=== PATIENT | female | born 1985 | race African-American/Black ===

== ENCOUNTER 2017-09-12 05:25 | Day surgery (SDC) | payer OTHER ==
[2017-09-04 17:41] VITALS: BMI 35.6
[2017-09-12] MEDS ORDERED: oxyCODONE HCL 5 MG TABLET PO PRN ×2 (14:16)
[2017-09-12] MEDS ORDERED: ONDANSETRON 4 MG/2 ML VIAL IVPUSH PRN (14:16)
[2017-09-12] MEDS ORDERED: LACTATED RINGERS SOLUTION 1,000 ML IV SCH (14:30)
[2017-09-12] MEDS ORDERED: ceFAZolin SODIUM 1 GM VIAL IVPB ONE (14:40)
--- NOTE | 2017-09-12 14:41 | HP ---
Satellite [facility] - Chief Complaint Chief Complaint: left knee pain History of Present Illness: left knee OA and meniscus tear History Source: Patient Limitations to Obtaining History: No Limitations - Past Medical History Allergies/Adverse Reactions: Allergies Allergy/AdvReac Type Severity Reaction Status Date / Time No Known Drug Allergies Allergy Verified 09/12/17 13:19 ...LMP: 09/03/17 - Current Medications Current Medications: Home Medications Medication Instructions Recorded Acetaminophen [Tylenol -] 1,000 mg PO PRN PRN 09/04/17 Ascorbate Calcium [Vitamin C] 500 mg PO DAILY 09/04/17 Cholecalciferol (Vitamin D3) 2,000 unit PO DAILY 09/04/17 [Vitamin D3 -] Multivitamin [One Daily] 1 each PO DAILY 09/04/17 Satellite Physical Exam - Physical Examination Vital Signs: Vital Signs Period Temp Pulse Resp BP Sys/Medina Pulse Ox Last 24 Hr 98.0 F 77 20 115/83 98 General Appearance: Well Nourished ENT: Clear Lung: Clear to auscultation Heart: Regular rate & rhythm Breasts: Soft Abdomen: Soft Extremities: No edema Satellite Impression/Plan - Impression/Plan Impression: left knee mensicus tear, OA, loose body Operative Procedure: left knee arthroscopy, partial meniscectomy, debridement chondroplasty, removal loose body Date to be Performed: 09/12/17
[2017-09-12] MEDS ORDERED: BUPIVACAINE HCL/PF 0.5% (5MG/ML) 10 ML VIAL ONE (14:45)
[2017-09-12] MEDS ORDERED: BUPIVACAINE HCL/PF 0.5% (5MG/ML) 10 ML VIAL IJ ONE (15:25)
--- NOTE | 2017-09-12 15:34 | OP ---
Operative Note - Note: Operative Date: 09/12/17 Pre-Operative Diagnosis: left knee pain Operation: left knee arthroscopy, partial lateral meniscectomy Post-Operative Diagnosis: Same as Pre-op Surgeon: Casper Ware Anesthesia: General, Local Specimens Removed: shavings Estimated Blood Loss (mls): 0 Drains, Volume Out (mls): 0 Blood Volume Replaced (mls): 0 Fluid Volume Replaced (mls): 500 Operative Report Dictated: Yes
--- NOTE | 2017-09-12 17:31 | OP ---
DATE OF OPERATION: 09/12/2017 PREOPERATIVE DIAGNOSIS: Left knee pain. POSTOPERATIVE DIAGNOSIS: Left knee pain. Lateral meniscus tear. PROCEDURE: Left knee arthroscopy, partial lateral meniscectomy. SPECIMENS: Arthroscopic shavings. DRAINS: None. COMPLICATIONS: None. FLUID: 500 mL. BLOOD LOSS: None. BLOOD GIVEN: None. INDICATION: This patient is a 31-year-old female with preoperative diagnosis of left knee pain. After understanding the potential risks, complications, alternatives, benefits to surgery versus nonsurgical treatment, the patient elected to undergo this procedure. DESCRIPTION OF PROCEDURE: Patient brought to operating room, peripheral IV placed, IV sedation given, LMA anesthesia was induced. Ample Webril was placed around the left thigh. The was applied. She was placed in the C-clamp leg duran with ample padding throughout. The left lower extremity was prepped and draped in sterile fashion, elevated, exsanguinated with an Esmarch bandage and tourniquet inflated to 275 mmHg. Next, a superior medial portal was established. A lateral portal was established. An arthroscope was introduced into the joint using direct visualization. Using a spinal needle and needle portal was established. A probe was introduced into the joint and diagnostic arthroscopy was performed. The median compartment looked good. There was only grade 1 chondromalacia of the medial tibial plateau, but it was very mild. The medial femoral condyle looked good. The medial meniscus looked good. I probed it. I could not find any tear. Intracondylar notch looked good. The ACL looked good. There was abundant ligamentum mucosum; therefore, this was removed with a shaver. Next, the lateral compartment was directly visualized. The patient had a small radial tear at the junction of the posterior horn and body of the lateral meniscus; this was debrided with a curved shaver. There was no arthritis, the lateral compartment also looked quite good. Next, our attention turned to the patellofemoral joint which also looked quite good. There was no arthritis. There was no excessive synovitis. I did an extensive visual search of any loose bodies in the joint in the superior patellofemoral pouch lateral and medial gutters. I could not find any loose bodies. It is possible that I already was able to remove it when doing the ligamentum mucosum debridement. The area was copiously irrigated and washed out. All instrumentation was removed. Excess saline removed. The arthroscopy portals were closed with 3-0 nylon sutures. The areas were then washed and dried. 20 mL 0.5% Marcaine was introduced into the joint. I covered with Xeroform gauze, 4x4 gauze, Webril and a 6-inch Nazario bandage was applied. The tourniquet was taken down after a total tourniquet time of 15 minutes. There were no complications during the case and the patient tolerated the procedure quite well and was brought to the ambulatory recovery room in stable condition. BAILEY ISAAC M.D. [id number]
[2017-09-12 18:04] VITALS: BP 122/77; PULSE 77
[2017-09-12 18:58] VITALS: TEMP 98.3
--- NOTE | 2017-09-19 11:55 | PATH ---
Surgical Pathology Report Patient Name: JESSICA WILLAMS [facility]. Rec. #: [id number] /Age/Gender: 1985 (Age: 31) / F Account: [id number] Location: [facility] Taken: 09/12/2017 Received: 09/13/2017 Reported: 09/19/2017 Physicians: Casper Ware M.D. Specimen(s) Received LEFT KNEE SHAVINGS Clinical History Osteoarthritis left knee Final Diagnosis KNEE SHAVINGS, LEFT, ARTHROSCOPY AND PARTIAL MENISCECTOMY: BENIGN SCANT CARTILAGE, SYNOVIUM AND FIBROADIPOSE TISSUE. Electronically Signed Ivonne Nava M.D. Gross Description Received in formalin, labeled "left knee shavings," is a 4.2 x 4.0 x 0.3 cm. aggregate of rice-yellow soft tissue fragments. A screening representative portion is submitted in one cassette. /09/13/201709/13/2017
== END 2017-09-12 18:04 | disposition home or self-care (01) ==
LOC: JASU-SURG 05:25
PROVIDERS: ATTEND Orthopaedic Surgery
PROC: 0SBD4ZZ Excision of Left Knee Joint, Percutaneous Endoscopic Approach (ICD-10-PCS; principal; 2017-09-12 14:30)
DX: S83.282A Other tear of lateral meniscus, current injury, left knee, initial encounter (principal); X58.XXXA Exposure to other specified factors, initial encounter; Y93.9 Activity, unspecified; Y92.9 Unspecified place or not applicable; Y99.9 Unspecified external cause status
CPT/HCPCS: 84703; 94760

== ENCOUNTER 2021-09-02 08:09 | Day surgery (SDC) | payer BC ==
[2021-08-25 15:55] VITALS: BMI 37.0
[2021-09-02] MEDS ORDERED: ONDANSETRON 4 MG/2 ML VIAL ONE (09:00)
[2021-09-02 09:47] VITALS: BP 128/73; PULSE 90; TEMP 87.8
== END 2021-09-02 09:55 | disposition home or self-care (01) ==
LOC: FASU-ENDO 08:09
PROVIDERS: ATTEND Internal Medicine Gastroenterology
PROC: 0DB68ZX Excision of Stomach, Via Natural or Artificial Opening Endoscopic, Diagnostic (ICD-10-PCS; 2021-09-02)
PROC: 0DB98ZX Excision of Duodenum, Via Natural or Artificial Opening Endoscopic, Diagnostic (ICD-10-PCS; principal; 2021-09-02 08:46)
DX: R12 Heartburn (principal); K29.50 Unspecified chronic gastritis without bleeding
CPT/HCPCS: 81025; 88305-TC; 88342-TC

== ENCOUNTER 2023-03-30 07:55 | Day surgery (SDC) | payer BC ==
[2023-03-24 09:58] VITALS: BMI 37.0
[2023-03-30 09:41] VITALS: TEMP 97.6
[2023-03-30 10:12] VITALS: BP 109/65; PULSE 82; RESP 18
== END 2023-03-30 10:13 | disposition home or self-care (01) ==
LOC: FASU-ENDO 07:55
PROVIDERS: ATTEND Internal Medicine Gastroenterology
PROC: 0DBC8ZX Excision of Ileocecal Valve, Via Natural or Artificial Opening Endoscopic, Diagnostic (ICD-10-PCS; principal; 2023-03-30 09:09)
DX: Z12.11 Encounter for screening for malignant neoplasm of colon (principal); C18.0 Malignant neoplasm of cecum; Z83.71 Family history of colonic polyps
CPT/HCPCS: 81025; 88305-TC

== ENCOUNTER 2023-10-11 06:57 | Day surgery (SDC) | payer BC ==
[2023-10-06 15:31] VITALS: BMI 35.5
[2023-10-11 07:50] VITALS: TEMP 97.5
[2023-10-11] MEDS ORDERED: LIDOCAINE HCL/PF 2% SDV 5ML VIAL ONE (08:03)
[2023-10-11] MEDS ORDERED: PROPOFOL 100 ML ONE (08:03)
[2023-10-11 09:00] VITALS: RESP 19
[2023-10-11 09:02] VITALS: BP 110/68; PULSE 90
== END 2023-10-11 09:05 | disposition home or self-care (01) ==
LOC: FASU-ENDO 06:57
PROVIDERS: ATTEND Internal Medicine Gastroenterology
PROC: 0DB68ZX Excision of Stomach, Via Natural or Artificial Opening Endoscopic, Diagnostic (ICD-10-PCS; 2023-10-11)
PROC: 0DB38ZX Excision of Lower Esophagus, Via Natural or Artificial Opening Endoscopic, Diagnostic (ICD-10-PCS; 2023-10-11)
PROC: 0DB98ZX Excision of Duodenum, Via Natural or Artificial Opening Endoscopic, Diagnostic (ICD-10-PCS; principal; 2023-10-11 08:18)
DX: K29.50 Unspecified chronic gastritis without bleeding (principal); K21.00 Gastro-esophageal reflux disease with esophagitis, without bleeding; R12 Heartburn
CPT/HCPCS: 81025

== ENCOUNTER → 2024-04-01 | Day surgery (SDC) | payer BC ==
[2024-03-25 16:32] VITALS: BMI 35.5
[~2024-04-01] MED LIST: LIDOCAINE HCL/PF 2% SDV 5ML VIAL ONE; PROPOFOL 160 ML ONE
[2024-04-01 09:37] VITALS: RESP 16; TEMP 98.4
[2024-04-01 09:48] VITALS: BP 122/86; PULSE 83
== END | disposition home or self-care (01) ==
LOC: FASU-ENDO 07:20
PROVIDERS: ATTEND Internal Medicine Gastroenterology
PROC: 0DJD8ZZ Inspection of Lower Intestinal Tract, Via Natural or Artificial Opening Endoscopic (ICD-10-PCS; principal; 2024-04-01 09:07)
DX: Z12.11 Encounter for screening for malignant neoplasm of colon (principal); Z98.0 Intestinal bypass and anastomosis status; Z85.038 Personal history of other malignant neoplasm of large intestine
CPT/HCPCS: 81025